=== PATIENT | male | born 1965 | race Caucasian/White ===

== ENCOUNTER 2025-03-28 05:40 | Observation (INO) ==
--- NOTE | 2025-02-25 14:52 | PAT Medication Instructions ---
Medication Instructions Date of Service February 25, 2025 Home Medications Medication Instructions Recorded esomeprazole magnesium 40 mg 40 mg PO QAM GERD #90 caps 10/17/23 capsule,delayed release (Nexium) atorvastatin 40 mg tablet (Lipitor) 40 mg PO QAM #90 tabs 12/16/24 ezetimibe 10 mg tablet (Zetia) 10 mg PO QAM #90 tabs 12/16/24 nystatin 100,000 unit/gram topical 1 applic topical BID #30 grams 01/16/25 cream nystatin 100,000 unit/gram topical 1 applic topical BID #30 grams 01/16/25 powder oxycodone-acetaminophen 10 mg-325 1 tab PO Q6H PRN pain #120 tabs 02/04/25 mg tablet famotidine 20 mg tablet (Pepcid) 20 mg PO HS #90 tabs 02/09/25 finasteride 5 mg tablet 5 mg PO QAM cholecalciferol (vitamin D3) 125 mcg (5,000 unit) tablet (Vitamin D3) 5,000 unit PO QAM esomeprazole magnesium 40 mg capsule,delayed release (Nexium) 40 mg PO QAM potassium citrate 10 mEq (1,080 mg) tablet,extended release (Urocit-K 10) 10 meq PO BID atorvastatin 40 mg tablet (Lipitor) 40 mg PO QAM ezetimibe 10 mg tablet (Zetia) 10 mg PO QAM lidocaine 4 % topical patch 1 patch topical DAILY PRN nystatin 100,000 unit/gram topical cream 1 applic topical BID nystatin 100,000 unit/gram topical powder 1 applic topical BID oxycodone-acetaminophen 10 mg-325 mg tablet 1 tab PO Q6H PRN famotidine 20 mg tablet (Pepcid) 20 mg PO HS ASK your prescriber and surgeon lidocaine 4 % topical patch 1 patch topical DAILY PRN STOP taking 24 hours before surgery nystatin 100,000 unit/gram topical cream 1 applic topical BID nystatin 100,000 unit/gram topical powder 1 applic topical BID DO NOT take the morning of surgery cholecalciferol (vitamin D3) 125 mcg (5,000 unit) tablet (Vitamin D3) 5,000 unit PO QAM potassium citrate 10 mEq (1,080 mg) tablet,extended release (Urocit-K 10) 10 meq PO BID Take morning of surgery With a small sip of water, OTHERWISE NOTHING TO EAT OR DRINK AFTER MIDNIGHT: finasteride 5 mg tablet 5 mg PO QAM esomeprazole magnesium 40 mg capsule,delayed release (Nexium) 40 mg PO QAM atorvastatin 40 mg tablet (Lipitor) 40 mg PO QAM ezetimibe 10 mg tablet (Zetia) 10 mg PO QAM oxycodone-acetaminophen 10 mg-325 mg tablet 1 tab PO Q6H PRN(if needed) Take evening before surgery potassium citrate 10 mEq (1,080 mg) tablet,extended release (Urocit-K 10) 10 meq PO BID oxycodone-acetaminophen 10 mg-325 mg tablet 1 tab PO Q6H PRN(if needed) famotidine 20 mg tablet (Pepcid) 20 mg PO HS Other Notes If you have any questions please call us at [phone] or [phone] or [phone] or [phone]
--- NOTE | 2025-03-06 09:44 | Anesthesiology Consultation ---
Date of Service March 06, 2025 Assessment & Plan (1) Encounter for pre-operative examination: - workload note to be sent to [place] PCP for ultimate pre-operative determination in f/u to 03/03/25 visit. - patient requests not having supplemental oxygen in post-op if possible. He also reports h/o aggressiveness in post-op. OR made aware. Chart Review Chart Review: Pending: Refer to Additional Notes / Consult section and Patient seen in Pre Admission Testing Teaching & Discussion Pre-Anesthesia Teaching/Discussion Notes: Instructed NPO after midnight before surgery, except medications with 15 cc of water. Medication instructions provided according to the PAT guidelines. History Surgery Operation Date: 03/28/25 07:30 Proposed Procedures p C5-C6, C6-C7 Anterior Cervical Discectomy and Fusion with Spinal Cord Monitoring - Kamran Crenshaw MD Height/Weight Height: 5 ft 8 in Weight: 99.1 kg Allergies Allergy/AdvReac Type Severity Reaction Status Date / Time No Known Allergies Allergy Verified 03/03/25 15:58 Medications Home Medications Medication Instructions Recorded Confirmed Last Taken finasteride 5 mg tablet 5 mg PO QAM 05/28/20 03/03/25 01/30/25 cholecalciferol (vitamin D3) 125 5,000 unit PO QAM 02/16/23 03/03/25 01/30/25 mcg (5,000 unit) tablet (Vitamin D3) esomeprazole magnesium 40 mg 40 mg PO QAM GERD #90 caps 10/17/23 03/03/25 01/30/25 capsule,delayed release (Nexium) potassium citrate 10 mEq (1,080 10 meq PO BID 10/17/23 03/03/25 01/30/25 mg) tablet,extended release (Urocit-K 10) atorvastatin 40 mg tablet (Lipitor) 40 mg PO QAM #90 tabs 12/16/24 03/03/25 01/30/25 ezetimibe 10 mg tablet (Zetia) 10 mg PO QAM #90 tabs 12/16/24 03/03/25 01/30/25 lidocaine 4 % topical patch 1 patch topical DAILY PRN Pain 01/16/25 03/03/25 Unknown nystatin 100,000 unit/gram topical 1 applic topical BID #30 grams 01/16/25 03/03/25 Unknown cream nystatin 100,000 unit/gram topical 1 applic topical BID #30 grams 01/16/25 03/03/25 Unknown powder oxycodone-acetaminophen 10 mg-325 1 tab PO Q6H PRN pain #120 tabs 02/04/25 03/03/25 Unknown mg tablet famotidine 20 mg tablet (Pepcid) 20 mg PO HS #90 tabs 02/09/25 03/03/25 Unknown oxycodone 10 mg tablet 10 mg PO Q4H PRN pain #150 tabs 03/03/25 03/03/25 Unknown nitrofurantoin 100 mg PO BID #14 caps 03/04/25 Unknown monohydrate/macrocrystals 100 mg capsule (Macrobid) Past Medical History Medical History BPH (benign prostatic hyperplasia) Cervical radiculopathy at C6 f/u geronimo love Cervical radiculopathy at C7 f/u geronimo love Chronic lumbar pain Degenerative lumbar spinal stenosis hx Difficulty swallowing dysphagia w/u in 2019 included EGD and found to have Barretts esophagus and esophagitis; med and lifestyle changes recommended--"still ongoing problem depending on what he's eating" denies change or worsening Fatty liver GERD (gastroesophageal reflux disease) controlled, stable per pt Hearing deficit History of anemia no current issues History of Mcdaniel's esophagus History of Graves' disease diagnosed 2008--no meds currently, no surgery History of hyperthyroidism History of kidney stones History of pericarditis (~2020) Hx MRSA infection (~2018) 2019, dx s bert in groin/wound, tx w/abx. Hx of chronic kidney disease Hx of gout Hyperlipidemia Migraine hx Osteoporosis Other cervical disc degeneration, high cervical region f/u geronimo love Pericardial effusion (~2020) hx-2020, no current issues; d/c by [facility] cardio in 2022 with prn f/u Thyroid nodule Vitamin D deficiency Patient denies h/o stroke, seizures, heart attack, heart failure, DM, HTN, blood clots/DVTs or blood transfusions. Exercise / Class Metabolic Activity II 4-5 Yardwork/Stairs/Walk up hill (denies chest discomfort or shortness of breath with one flight of stairs) Past Family History Family History Father Diabetes Hypertension Stroke Aunt Cancer Grandfather Cancer Other No family history of adverse response to anesthesia Past Surgical History Surgical History H/O arthroscopy of knee LEFT UOC H/O shoulder surgery RIGHT X2, Left x 3 History of back surgery X3 lumbar disc surgery [place] x2 [place] History of carpal tunnel surgery of left wrist w/cubital tunnel release of left elbow History of carpal tunnel surgery of right wrist w/cubital tunnel release History of esophagogastroduodenoscopy (EGD) 01/2025 History of lumbar spinal fusion L4-L5 d/f hdw, unsure of date "not recently" History of wisdom tooth extraction Past Anesthesia History No Family Hx of Anesthesia Complications and Other (patient states can be verbally aggressive post-op) History of PONV No Hx of PONV and No Hx of Motion Sickness Social History Smoking Status: Former smoker tobacco type: smokeless tobacco Do You Dip or Chew Tobacco: Yes (advised) Smoking End Date: years ago Hx Alcohol Use: No Hx Substance Use: No (pt denies hx of use) substance use type: does not use Last Used Substance Other:: pt denies Review of Systems Snoring, denies witnessed apneas. Patient denies chest pain, shortness of breath, dyspnea on exertion, fever, chills, cough, wheezing, or palpitations. Physical Exam Vital Signs Vitals BP 148/78 P 98 TEMP 98.3 SP02 98% on RA RESP 17 Physical Patient resting comfortably in chair in no acute distress, alert and oriented, responding appropriately throughout visit Limited cervical extension range of motion without pain TMD 3.5 finger breadths Mallampati Score 3 Dentition: broken tooth right back, front caps/crowns and upper bridge; denies loose teeth, or implants Lungs: normal respiratory effort. Good air movement, clear throughout to auscultation, no adventitious breath sounds Cardiac: regular rate and rhythm, no murmurs noted Carotid arteries: negative bruit bilat Lab Results Anesthesia Preop Results Results Anesthesia Widget: WBC 9.09 K/ul (4.8-10.8) 03/03/25 Hgb 15.1 g/dl (14.0-18.0) 03/03/25 Hct 45.2 % (42.0-52.0) 03/03/25 Plt 243 K/uL (130-400) 03/03/25 Na 138 mmol/L (136-145) 03/03/25 K 4.2 mmol/L (3.5-5.1) 03/03/25 Cl 103 mmol/L (98-107) 03/03/25 CO2 25 mmol/L (21-32) 03/03/25 BUN 8 mg/dl (6-23) 03/03/25 Creat 1.06 mg/dl (0.6-1.4) 03/03/25 Glucose Level 92 mg/dl (70-99(Fasting)) 03/03/25 PT 10.6 Seconds (9.0-12.0) 03/03/25 PTT 26 Seconds (21-31) 03/03/25 INR 1.0 (0.9-1.1) 03/03/25 HA1c 5.7 % (4.5-5.6) H 03/06/25 Urine Color Yellow 03/03/25 Urine Appearance Cloudy (Clear) A 03/03/25 Urine pH 5.5 (4.5-7.5) 03/03/25 Urine Specific [place] 1.014 (1.000-1.030) 03/03/25 Urine Protein Negative (Negative) 03/03/25 Urine Glucose (UA) Negative (Negative) 03/03/25 Urine Ketones Trace (Negative) H 03/03/25 Urine Blood Trace (Negative) H 03/03/25 Urine Nitrite Positive (Negative) A 03/03/25 Urine Bilirubin Negative (Negative) 03/03/25 Urine Urobilinogen Negative (Negative) 03/03/25 Urine Leukocyte Esterase 3+ (Negative) H 03/03/25 Urine WBC (Auto) >50 /hpf (0-5) H 03/03/25 Urine RBC (Auto) 0-2 /hpf (0-2) 03/03/25 Urine Hyaline Casts (Auto) 0-2 /lpf (0-2) 03/03/25 Urine Epithelial Cells (Auto) 0-2 /hpf (0-2) 03/03/25 Urine Bacteria (Auto) 4+ (None Seen) H 03/03/25 Blood Type O Positive 03/06/25 Antibody Screen NEGATIVE 03/06/25 Testing Electrocardiogram Date: 03/03/25 Sinus rhythm, rate 85 bpm Chest X-Ray Date: 03/06/25 No prior studies are available for comparison at the time of dictation. The heart is mildly enlarged. The pulmonary vasculature is noncongested. Nonspecific interstitial thickening is likely chronic. Scarring/atelectasis is noted at the lung bases. No airspace consolidation or large pleural effusion is identified. There is no pneumothorax. The skeletal structures are osteopenic. There are mild thoracic compression deformities. Degenerative change and scoliosis is noted in the thoracic spine. IMPRESSION: Cardiomegaly with no acute cardiopulmonary abnormality identified. Echocardiogram Date: 02/25/21 LVEF 54% Grade I diastolic dysfunction Non-dilated cardiac chambers Mild mitral regurgitation Borderline enlarged aortic root and proximal ascending aorta Increased tissue density in the region of the pericardium suggesting pericardial fat. No pericardial effusion is noted Stress Test Date: 01/26/21 Negative for ischemia Decreased counts noted in the inferior wall (suggested of attenuation artifact disease counts improved with stress and there is no wall motion abnormalities) EF 57% Cervical Spine Date: 06/17/24 Degenerative changes of the midcervical spine including multilevel foraminal stenosis from uncovertebral hypertrophy and facet osteoarthropathy as described above. There is no high-grade thecal sac stenosis or cord impingement.
[2025-03-28] MEDS: ACETAMINOPHEN 500 MG TAB PO SCH (06:21)
[2025-03-28] MEDS: LR 60ML/HR IV SCH (06:22)
[2025-03-28] MEDS: LR 15ML/HR IV SCH (06:22)
[2025-03-28] MEDS ORDERED: DEXAMETHASONE SOD INJ 4 MG/ML VIAL ONE (07:02)
[2025-03-28] MEDS ORDERED: PROPOFOL IV EMULSION 10 MG/ML 100 ML VIAL IV ONE ×2 (07:02→10:05)
[2025-03-28] MEDS ORDERED: SUCCINYLCHOLINE CHLORIDE 20 MG/ML 10 ML VIAL IV ONE (07:02)
[2025-03-28] MEDS ORDERED: PROPOFOL IV EMULSION 10 MG/ML 20 ML VIAL IV ONE (07:03)
[2025-03-28] MEDS ORDERED: ROCURONIUM BROMIDE 10 MG/ML 5 ML VIAL IV ONE (07:03)
[2025-03-28] MEDS ORDERED: LIDOCAINE 2% 2 ML VIAL/AMP(20MG/ML) INFIL ONE (07:03)
[2025-03-28] MEDS ORDERED: ONDANSETRON INJ 2 MG/ML 2 ML VIAL ONE (07:03)
[2025-03-28] MEDS ORDERED: MIDAZOLAM HCL 1 MG/ML 2ML VIAL ONE (07:03)
[2025-03-28] MEDS ORDERED: REMIFENTANIL HCL 1 MG VIAL IV ONE ×2 (07:04→09:49)
[2025-03-28] MEDS ORDERED: PHENYLEPHRINE HCL 10 MG/ML VIAL ONE (07:08)
--- NOTE | 2025-03-28 07:27 | History & Physical Report ---
Date of Service March 28, 2025 Assessment & Plan (1) Other cervical disc degeneration at C6-C7 level: (2) Other cervical disc degeneration at C5-C6 level: (3) Cervical arthritis: (4) Foraminal stenosis of cervical region: (5) Cervical radiculopathy at C7: (6) Cervical radiculopathy at C6: I discussed again with the patient today that he has multiple discs throughout his neck and have signs of degeneration. He does have a nerve conduction study findings of C6 and C7 radiculopathy on his left which could correlate with his symptoms. We discussed again that he has an atypical presentation of radiculopathy and the most severe pain of his shoulder region may not be completely resolved even with surgery. I discussed multiple options with him today such as only addressing the C5-6 and C6-7 levels as there is certainly stenosis at these levels and nerve conduction study findings of radiculopathy at these levels. There is no sign of a C4 radiculopathy so my recommendation would be to address only the C5-6 and C6-7 levels if any surgery were to be planned. We did discuss the possibility of a hybrid construct with anterior cervical discectomy and fusion at C5-6 and C6-7 with possible disc arthroplasty at C3-4 at a later date if he continued to have radicular symptoms. Risks and benefits documented in prior clinic notes. History of Present Illness Chief Complaint: Left Shoulder Pain Primary Care Provider: Osiel Santos DO Patient is a 59-year-old gentleman here for follow-up status post cervical epidural injection. He had a C7-T1 translaminar epidural injection which provided approximately 6 weeks of good relief of symptoms. Fortunately pain radiating into the left upper extremity is starting to return, main area of concentration is the superior aspect of his shoulder. He does report some radiation of pain and numbness into the C6 and C7 dermatomes down to the left hand. He has had the symptoms for quite some time, he has undergone shoulder surgery. He was also evaluated by one of our other spine surgeons and sent for nerve conduction study which did show chronic C6 and C7 radiculopathy. No changes since clinic Allergies Allergy/AdvReac Type Severity Reaction Status Date / Time No Known Allergies Allergy Verified 03/28/25 05:54 Home Medications Medication Instructions Recorded Confirmed Type finasteride 5 mg tablet (Proscar) 5 mg PO QAM 05/28/20 03/28/25 History cholecalciferol (vitamin D3) 125 5,000 unit PO QAM 02/16/23 03/28/25 History mcg (5,000 unit) tablet (Vitamin D3) esomeprazole magnesium 40 mg 40 mg PO QAM GERD #90 caps 10/17/23 03/28/25 Rx capsule,delayed release (Nexium) potassium citrate 10 mEq (1,080 10 meq PO BID 10/17/23 03/28/25 History mg) tablet,extended release (Urocit-K 10) atorvastatin 40 mg tablet (Lipitor) 40 mg PO QAM #90 tabs 12/16/24 03/28/25 Rx ezetimibe 10 mg tablet (Zetia) 10 mg PO QAM #90 tabs 12/16/24 03/28/25 Rx lidocaine 4 % topical patch 1 patch topical DAILY PRN Pain 01/16/25 03/28/25 History nystatin 100,000 unit/gram topical 1 applic topical BID #30 grams 01/16/25 03/28/25 Rx cream nystatin 100,000 unit/gram topical 1 applic topical BID #30 grams 01/16/25 03/28/25 Rx powder oxycodone-acetaminophen 10 mg-325 1 tab PO Q6H PRN pain #120 tabs 02/04/25 03/28/25 Rx mg tablet oxycodone 10 mg tablet 10 mg PO Q4H PRN pain #150 tabs 03/03/25 03/28/25 Rx famotidine 20 mg tablet (Pepcid) 20 mg PO DAILY 03/28/25 03/28/25 History Past Med/Surg History Problem List Lumbar radiculopathy Tinea pedis Foraminal stenosis of cervical region Cervical spondylosis Other cervical disc degeneration at C6-C7 level Other cervical disc degeneration at C5-C6 level Cervical arthritis Gout Right shoulder pain Elevated alkaline phosphatase level Nevus Cervical radiculopathy at C7 Cervical radiculopathy at C6 Other cervical disc degeneration, high cervical region Cervical pain Numbness of left hand H/O renal calculi Elevated sed rate Right knee pain CKD (chronic kidney disease) Anemia Barretts esophagus Encounter for pre-operative examination 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; had normal EGD 05/2020 Dysphagia Arthritis Thyroid nodule Decreased libido Unexplained night sweats Thyroid enlargement Left shoulder pain AC joint arthropathy Vitamin D deficiency (Chronic) Osteoporosis with fracture (Chronic) Osteogenesis imperfecta (Chronic) Hyperthyroidism (Chronic) Hyperlipidemia (Chronic) Degenerative lumbar spinal stenosis Chronic lumbar pain (Chronic) on 60MME/day PRN pain medication Medical History BPH (benign prostatic hyperplasia) Cervical radiculopathy at C6 f/u geronimo love Cervical radiculopathy at C7 f/u geronimo love Chronic lumbar pain Degenerative lumbar spinal stenosis hx Difficulty swallowing dysphagia w/u in 2019 included EGD and found to have Barretts esophagus and esophagitis; med and lifestyle changes recommended--"still ongoing problem depending on what he's eating" denies change or worsening Fatty liver GERD (gastroesophageal reflux disease) controlled, stable per pt Hearing deficit History of anemia no current issues History of Mcdaniel's esophagus History of Graves' disease diagnosed 2008--no meds currently, no surgery History of hyperthyroidism History of kidney stones History of pericarditis (~2020) Hx MRSA infection (~2018) 2019, dx s [place] in groin/wound, tx w/abx. Hx of chronic kidney disease Hx of gout Hyperlipidemia Migraine hx Osteoporosis Other cervical disc degeneration, high cervical region f/u geronimo love Pericardial effusion (~2020) hx-2020, no current issues; d/c by [facility] in 2022 with prn f/u Thyroid nodule Vitamin D deficiency Surgical History H/O arthroscopy of knee LEFT UOC H/O shoulder surgery RIGHT X2, Left x 3 History of back surgery X3 lumbar disc surgery x2 [place] History of carpal tunnel surgery of left wrist w/cubital tunnel release of left elbow History of carpal tunnel surgery of right wrist w/cubital tunnel release History of esophagogastroduodenoscopy (EGD) 01/2025 History of lumbar spinal fusion L4-L5 d/f hdw, unsure of date "not recently" History of wisdom tooth extraction Family History Father Diabetes Hypertension Stroke Aunt Cancer Grandfather Cancer Other No family history of adverse response to anesthesia Social History Smoking Status: Former smoker Tobacco Type: Smokeless Tobacco (Dip or Chew) Age Started Using Tobacco: 13; Age Quit Using Tobacco: 23; packs per day: 0.5; Smoking End Date: years ago; Second Hand Exposure: No; Do You Dip or Chew Tobacco: Yes (advised); Tobacco Cessation Education Requested by Patient: No Hx Alcohol Use: No Hx Substance Use: No (pt denies hx of use) Preferred Language: Yakut Communication Ability: Effective 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 Physical Exam Physical exam: Constitutional: Well developed, appears stated age Psych: patient is coherent and answers questions appropriately, normal affect Eye: Normal gaze, no redness to sclera, pupils round and equal Pulm: Normal respiratory effort, no wheezing Cardiovascular: no significant peripheral edema, 2+ radial pulses Skin shows no rashes, lesions 5/5 muscle strength with testing of deltoids, wrist extensors, triceps, finger flexion, and hand intrinsics Sensation intact to light touch in the C5-T1 dermatomes bilaterally 2+ reflexes at biceps, triceps, and brachioradialis bilaterally Imaging: MRI of the cervical spine available for review and discussed again with the patient today. He does have moderate disc degeneration at C3-4 with disc bulge, severe left foraminal stenosis at C3-4. C5-6 C6-7 both show a moderate degree of disc degeneration with severe left foraminal stenosis at C5-6 and moderate at C6-7 with compression of the exiting nerve roots. Results & Data Results & Data Laboratory Results . Diagnostic Findings . PG Care Time/CCT Total # of Minutes Spent Total Time Spent with Patient: Total time spent is greater than 50% in coordination of care (as documented) at patient's floor/unit and/or counseling patient: Coding Level of Care Code None Diagnoses Other cervical disc degeneration at C6-C7 level M50.323 Other cervical disc degeneration at C5-C6 level M50.322 Cervical arthritis M47.812 Foraminal stenosis of cervical region M48.02 Cervical radiculopathy at C7 M54.12 Cervical radiculopathy at C6 M54.12
--- NOTE | 2025-03-28 09:09 | Urology Consultation ---
Date of Consultation March 28, 2025 Assessment & Plan (1) BPH (benign prostatic hyperplasia): Patient presenting to OR for elective C5-C6, C6-C7 anterior cervical discectomy and fusion with spinal cord monitoring with Dr. Crenshaw. Urology consulted preoperatively for difficult Ac placement A 16 Bur[place]ian coude catheter was placed successfully Ac draining appropriately at completion Continue Ac management per primary team will sign off, please contact our service with any additional questions or concerns History of Present Illness Reason for Consultation: Difficult Ac catheter Attending Physician: Kamran Crenshaw MD History of Present Illness This is a 60-year-old male who presented for elective C5-C6, C6-C7 anterior cervical discectomy and fusion with spinal cord monitoring with Dr. Crenshaw. Nursing was unable to place a Ac catheter preoperatively. Urology is consulted for difficult Ac placement. Patient was already under anesthesia upon my arrival to OR. Ac catheter was exchanged in the following fashion: On exam, patient has a hypospadias. Patient was prepped and draped in sterile fashion. A well-lubricated 16 Burundian catheter was inserted per urethra. Initially met slight resistance within the penile urethra, which was bypassed. Met resistance again at the presumed level of the prostate. Switched catheter to 16 [place]ian coude catheter. Coude catheter bypassed the prostate and flash of urine was observed. The balloon was then inflated with 10 mL of saline. There was return of clear yellow urine through the catheter. The catheter was attached to gravity drainage. Allergies Allergy/AdvReac Type Severity Reaction Status Date / Time No Known Allergies Allergy Verified 03/28/25 05:54 Home Medications Medication Instructions Recorded Confirmed Type finasteride 5 mg tablet (Proscar) 5 mg PO QAM 05/28/20 03/28/25 History cholecalciferol (vitamin D3) 125 5,000 unit PO QAM 02/16/23 03/28/25 History mcg (5,000 unit) tablet (Vitamin D3) esomeprazole magnesium 40 mg 40 mg PO QAM GERD #90 caps 10/17/23 03/28/25 Rx capsule,delayed release (Nexium) potassium citrate 10 mEq (1,080 10 meq PO BID 10/17/23 03/28/25 History mg) tablet,extended release (Urocit-K 10) atorvastatin 40 mg tablet (Lipitor) 40 mg PO QAM #90 tabs 12/16/24 03/28/25 Rx ezetimibe 10 mg tablet (Zetia) 10 mg PO QAM #90 tabs 12/16/24 03/28/25 Rx lidocaine 4 % topical patch 1 patch topical DAILY PRN Pain 01/16/25 03/28/25 History nystatin 100,000 unit/gram topical 1 applic topical BID #30 grams 01/16/25 03/28/25 Rx cream nystatin 100,000 unit/gram topical 1 applic topical BID #30 grams 01/16/25 03/28/25 Rx powder oxycodone-acetaminophen 10 mg-325 1 tab PO Q6H PRN pain #120 tabs 02/04/25 03/28/25 Rx mg tablet oxycodone 10 mg tablet 10 mg PO Q4H PRN pain #150 tabs 03/03/25 03/28/25 Rx famotidine 20 mg tablet (Pepcid) 20 mg PO DAILY 03/28/25 03/28/25 History Patient History Medical History History of pericarditis (~2020) Vitamin D deficiency Thyroid nodule Pericardial effusion (~2020) hx-2020, no current issues; d/c by [facility] cardio in 2022 with prn f/u Other cervical disc degeneration, high cervical region f/u geronimo love History of hyperthyroidism GERD (gastroesophageal reflux disease) controlled, stable per pt Hyperlipidemia Hx of gout Degenerative lumbar spinal stenosis hx Hx of chronic kidney disease Chronic lumbar pain Cervical radiculopathy at C7 f/u geronimo love Cervical radiculopathy at C6 f/u geronimo love History of anemia no current issues Hx MRSA infection (~2018) 2019, dx s lewistowcharlette in groin/wound, tx w/abx. History of Mcdaniel's esophagus BPH (benign prostatic hyperplasia) Fatty liver Difficulty swallowing dysphagia w/u in 2019 included EGD and found to have Barretts esophagus and esophagitis; med and lifestyle changes recommended--"still ongoing problem depending on what he's eating" denies change or worsening History of Graves' disease diagnosed 2008--no meds currently, no surgery Hearing deficit Migraine hx Osteoporosis History of kidney stones Surgical History History of carpal tunnel surgery of right wrist w/cubital tunnel release History of carpal tunnel surgery of left wrist w/cubital tunnel release of left elbow History of esophagogastroduodenoscopy (EGD) 01/2025 History of lumbar spinal fusion L4-L5 d/f hdw, unsure of date "not recently" History of wisdom tooth extraction History of back surgery X3 lumbar disc surgery x2 [place] H/O arthroscopy of knee LEFT UOC H/O shoulder surgery RIGHT X2, Left x 3 Family History Father Diabetes Hypertension Stroke Aunt Cancer Grandfather Cancer Other No family history of adverse response to anesthesia Social History Smoking Status: Former smoker Tobacco Type: Smokeless Tobacco (Dip or Chew) Age Started Using Tobacco: 13; Age Quit Using Tobacco: 23; packs per day: 0.5; Smoking End Date: years ago; Second Hand Exposure: No; Do You Dip or Chew Tobacco: Yes (advised); Tobacco Cessation Education Requested by Patient: No Hx Alcohol Use: No Hx Substance Use: No (pt denies hx of use) Preferred Language: Maori Communication Ability: Effective Cable Inspector Required: No Beliefs That Will Affect Care: None marital status: Single Current Living Situation: Parent and Significant Other current occupational status: disabled Other Information That Helps Us Care for You: No Feels Safe at Home: Yes Safety Concerns: Feels Safe At This Time Childhood Exposure to Second-Hand Smoke: Yes caffeine: Yes (soda) Dental Care, Regularly: No Physical Activity Frequency: Does not Exercise Seatbelt Use: sometimes Sunscreen Use: No Assistive Devices: Glasses Review of Systems Review of Systems: Unobtainable due to endotracheal tube Physical Exam Genitourinary: Uncircumcised penis. Patient with a subcoronal hypospadias. Ac catheter placement as per HPI. Results & Data Vital Signs (Past 12 Hours) Vital Signs Temp Pulse Resp BP Pulse Ox O2 Del Method 03/28/25 06:11 36.9 C 97 H 22 125/94 95 Room Air PG Care Time/CCT Total # of Minutes Spent Total Time Spent with Patient: Total time spent is greater than 50% in coordination of care (as documented) at patient's floor/unit and/or counseling patient: Coding Level of Care Code 04179 IN/OBS CONSULT LVL 3,45M Diagnoses BPH (benign prostatic hyperplasia) N40.0 Comment Please code for difficult Ac placement/procedure
[2025-03-28] MEDS: VANCOMYCIN HCL 1000MG/20ML VIAL ONE (09:44)
[2025-03-28] MEDS ORDERED: ceFAZolin 330 MG/ML 1 GM VIAL ONE (11:56)
[2025-03-28] MEDS: FLOSEAL HEMOSTATIC MATRIX 10ML TOP ONE (12:04)
[2025-03-28] MEDS ORDERED: HYDROmorphone INJ 2 MG/ML SYR/VIAL ONE (12:07)
[2025-03-28] MEDS ORDERED: ONDANSETRON INJ 2 MG/ML 2 ML VIAL IV PRN ×2 (12:14→14:57)
[2025-03-28] MEDS ORDERED: HYDROmorphone INJ 2 MG/ML SYR/VIAL IV PRN (12:14)
[2025-03-28] MEDS ORDERED: ATROPINE SULFATE 0.1 MG/ML 10ML SYR IV PRN (12:14)
[2025-03-28] MEDS ORDERED: DEXAMETHASONE SOD INJ 4 MG/ML VIAL IV PRN (12:14)
--- NOTE | 2025-03-28 12:21 | Fluoroscopy Report ---
FL cervical 2-3V CLINICAL HISTORY: C5-C7 ACDF COMPARISON STUDY: None FLUOROSCOPY TIME: 65 seconds FLUOROSCOPY IMAGES: 3 EXPOSURE DOSE: 18 mGy FINDINGS: Fluoroscopy was provided for lower cervical metallic fusion. IMPRESSION: Intraoperative fluoroscopy. ACT 112: Negative or not required by law. Electronically signed by: Alex Lr M.D. 03/28/2025 12:19 PM
--- NOTE | 2025-03-28 12:24 | Operative Report ---
PG Post Operative Report Pre & Post Diagnosis Operation Date: 03/28/25 07:30 Pre-Op Diagnosis: (1) Other cervical disc degeneration at C6-C7 level. (2) Other cervical disc degeneration at C5-C6 level. (3) Cervical arthritis. (4) Foraminal stenosis of cervical region. (5) Cervical radiculopathy at C7. (6) Cervical radiculopathy at C6. Post-Op Diagnosis: (1) Other cervical disc degeneration at C6-C7 level. (2) Other cervical disc degeneration at C5-C6 level. (3) Cervical arthritis. (4) Foraminal stenosis of cervical region. (5) Cervical radiculopathy at C7. (6) Cervical radiculopathy at C6. I identified the patient and participated in the time-out.: Yes Procedure Operation Date: 03/28/25 07:30 1. C6-7 anterior cervical decompression and fusion (72448). 2. C6-7 interbody spacer placement with arthrodesis (02328). 3. C5-6 anterior cervical decompression and fusion (50127). 4. C5-6 interbody spacer placement with arthrodesis (08162). 5. C5, C6 and C7 anterior instrumentation (separate from interbody spacer) (91941). 6. Allograft for Spine Fusion Instrumentation: Camber Spira Interbody, Camber Plate Surgeon Kamran Crenshaw MD [address] Galarza PA-C Estimated Blood Loss 25 Findings Consistent with Post-Op Diagnosis Specimens None Drains Alonzo Anesthesia Type General Complications none Disposition Disposition: Recovery Room Indications The patient has suffered from severe and unrelenting symptoms despite exhaustive conservative management. After discussing the benefits and risks of continued conservative management versus operative intervention, the patient elected to proceed with surgery. Description of Procedure Informed consent was obtained prior to the procedure. In the preoperative holding area, the patient's anterior neck was marked with a marking pen. The patient was taken to the operating room and anesthesia was initiated. The patient was placed supine on a regular operating room table. The neck was placed in a neutral position. All prominences were carefully padded. Due to difficulty with Ac catheter placement, urology was consulted and placed Ac. The anterior neck was prepped and draped in typical sterile fashion. Antibiotics were administered. A timeout was performed. Neuromonitoring was utilized, including somatosensory evoked potentials, running electromyography and motor evoked potentials. These remained stable throughout the case. A #10 blade was used to incise the skin. Bovie electrocautery was used to maintain meticulous hemostasis as dissection was completed through the subcutaneous and platysma. The interval between the sternocleidomastoid and the strap musculature was identified and bluntly dissected. The carotid sheath was palpated, retracted laterally and protected. The anterior cervical spine was identified and exposed. A spinal needle was placed into the disc space to confirm the appropriate levels using x-ray. The longus colli were carefully elevated off the anterior spine laterally. Care was taken to not dissect too laterally so as to protect the sympathetic chains. Anterior osteophytes were removed. The caspar pins were placed and a small amount of distraction was applied across the C6-7 disc space. A total diskectomy along with bilateral foraminotomies were completed. The posterior longitudinal ligament was taken down. The central thecal sac and the bilateral C7 exiting nerve roots were confirmed to be completely decompressed. The endplates were prepared. Allograft was packed into an interbody spacer to encourage fusion. The interbody spacer was implanted.. [place] pins were placed and a small amount of distraction was applied across the C5-6 disc space. A total diskectomy along with bilateral foraminotomies were completed. The posterior longitudinal ligament was taken down. The central thecal sac and the bilateral C6 exiting nerve roots were confirmed to be completely decompressed. The endplates were prepared. Allograft was packed into an interbody spacer to encourage fusion. The interbody spacer was implanted. An anterior cervical plate was selected and implanted. Screws were placed into the bodies of C5, C6, C7. The screws were locked into the plate. X-rays were taken and confirmed appropriate spacer and hardware position. The wound was thoroughly irrigated. Meticulous hemostasis was achieved. A single drain was placed deep. The platysma and subcutaneous were closed using absorbable suture. The cutaneous was closed using a monofilament, absorbable suture. A sterile dressing was placed. At the end of the case, all instrument and sponge counts were correct. The patient was awakened from anesthesia without complication and taken to the PACU in stable condition. I attest to the content of the Intraoperative Record and any orders documented therein. Any exceptions are noted below.
--- NOTE | 2025-03-28 13:44 | Anesthesiology Progress Note ---
Date of Service March 28, 2025 Anesthesia Post Procedure Vital Signs Vital Signs: Temp Pulse Resp BP Pulse Ox O2 Del Method O2 Flow Rate 03/28/25 13:40 92 H 14 93 Room Air 03/28/25 13:30 90 14 128/98 94 Room Air 03/28/25 13:20 88 12 123/92 94 Room Air 03/28/25 13:10 93 H 16 110/86 95 Room Air 03/28/25 13:00 87 15 130/87 93 Room Air 03/28/25 12:50 89 15 136/100 94 Room Air 03/28/25 12:40 97 H 12 127/92 97 Oxymask 4 03/28/25 12:33 36.0 C L 93 H 12 123/94 95 Oxymask 4 03/28/25 06:11 36.9 C 97 H 22 125/94 95 Room Air Transfer of Care Handoff Completed per policy Notes Mental Status: alert / awake / arousable and participated in evaluation Patient Amnestic to Procedure: Yes Nausea / Vomiting: adequately controlled Pain: adequately controlled Airway Patency, RR, SpO2: stable & adequate BP & HR: stable & adequate Hydration State: stable & adequate Anesthetic Complications: no major complications apparent and Pt Satisfied with anesthetic care
[2025-03-28] MEDS ORDERED: ONDANSETRON 4 MG OD TAB PO PRN (14:57)
[2025-03-28] MEDS ORDERED: DO NOT ADMINISTER PNEUMOCOCCAL VACCINE PRN (14:57)
[2025-03-28] MEDS ORDERED: RACEPINEPHRINE 2.25% NEBU SOLN 0.5 ML VIAL INH PRN (14:57)
[2025-03-28] MEDS ORDERED: METOCLOPRAMIDE HCL INJ 5 MG/ML 2 ML VIAL IV PRN (14:57)
[2025-03-28] MEDS ORDERED: ACETAMINOPHEN 1,000 MG/100 ML VIAL IV PRN (14:57)
[2025-03-28] MEDS ORDERED: DO NOT ADMINISTER FLU VACCINE PRN (14:57)
[2025-03-28] MEDS ORDERED: diphenhydrAMINE Capsule 25 MG CAP PO PRN (14:57)
[2025-03-28] MEDS ORDERED: ALUMINUM/MAGNESIUM SUSP 30 ML UDC PO PRN (14:57)
[2025-03-28] MEDS ORDERED: SOD PHOSPHATE/SOD BIPHOSPHATE ENEMA 132 ML BTL PR PRN (14:57)
[2025-03-28] MEDS ORDERED: MAGNESIUM HYDROXIDE SUSP 30 ML UDC PO PRN (14:57)
[2025-03-28] MEDS ORDERED: LORazepam 0.5 MG TAB PO PRN (14:57)
[2025-03-28] MEDS ORDERED: NALOXONE HCL 0.4 MG/1 ML VIAL/CARP IV PRN (14:57)
[2025-03-28] MEDS ORDERED: HYDROmorphone INJ 1 MG/ML SYRINGE IV PRN (14:57)
[2025-03-28] MEDS ORDERED: dexAMETHasone 8 MG in SYRINGE 0 ML IV PRN (14:57)
[2025-03-28] MEDS ORDERED: PROMETHAZINE 12.5 MG/50.5 ML BAG IV PRN (14:57)
[2025-03-28] MEDS ORDERED: ACETAMINOPHEN 500 MG TAB PO PRN (14:57)
--- NOTE | 2025-03-28 15:16 | Hospitalist Consultation ---
Date of Consultation March 28, 2025 Assessment & Plan Plan Dmitri is a 60M with a PMHx of CKD, anemia, oesteoporosis, HLD, Hypothryoid and cervical disc degeneration who presents to the hospital for elective surgery with Dr. Crenshaw. Hospitalist consulted for medical management post op. #Cervical Disc Degeneration S/p C5-C6, C6-C7 anterior cervical discectomy and fusion with Dr. Crenshaw 03/28 Pain control / DVT proh / abx/ dispo per primary team EBL 25 Monitor for AM labs. #HLD - continue statin and zetia # GERD - continue PPI and pepcid #BPH - continue finasteride Thank you for allowing us to participate in the care of this patient, please reach out with any questions or concerns. Medicine will continue to follow for AM labs. History of Present Illness Reason for Consultation: medical management Requesting Physician: Dr. Crenshaw Attending Physician: Kamran Crenshaw MD History of Present Illness Dmitri is a 60M with a PMHx of CKD, anemia, oesteoporosis, HLD, Hypothryoid and cervical disc degeneration who presents to the hospital for elective surgery with Dr. Crenshaw. Allergies Allergy/AdvReac Type Severity Reaction Status Date / Time No Known Allergies Allergy Verified 03/28/25 05:54 Home Medications Medication Instructions Recorded Confirmed Type finasteride 5 mg tablet (Proscar) 5 mg PO QAM 05/28/20 03/28/25 History cholecalciferol (vitamin D3) 125 5,000 unit PO QAM 02/16/23 03/28/25 History mcg (5,000 unit) tablet (Vitamin D3) esomeprazole magnesium 40 mg 40 mg PO QAM GERD #90 caps 10/17/23 03/28/25 Rx capsule,delayed release (Nexium) potassium citrate 10 mEq (1,080 10 meq PO BID 10/17/23 03/28/25 History mg) tablet,extended release (Urocit-K 10) atorvastatin 40 mg tablet (Lipitor) 40 mg PO QAM #90 tabs 12/16/24 03/28/25 Rx ezetimibe 10 mg tablet (Zetia) 10 mg PO QAM #90 tabs 12/16/24 03/28/25 Rx lidocaine 4 % topical patch 1 patch topical DAILY PRN Pain 01/16/25 03/28/25 History nystatin 100,000 unit/gram topical 1 applic topical BID #30 grams 01/16/25 03/28/25 Rx cream nystatin 100,000 unit/gram topical 1 applic topical BID #30 grams 01/16/25 03/28/25 Rx powder oxycodone-acetaminophen 10 mg-325 1 tab PO Q6H PRN pain #120 tabs 02/04/25 03/28/25 Rx mg tablet oxycodone 10 mg tablet 10 mg PO Q4H PRN pain #150 tabs 03/03/25 03/28/25 Rx famotidine 20 mg tablet (Pepcid) 20 mg PO DAILY 03/28/25 03/28/25 History Patient History Medical History History of pericarditis (~2020) Vitamin D deficiency Thyroid nodule Pericardial effusion (~2020) hx-2020, no current issues; d/c by [facility] cardio in 2022 with prn f/u Other cervical disc degeneration, high cervical region f/u geronimo love History of hyperthyroidism GERD (gastroesophageal reflux disease) controlled, stable per pt Hyperlipidemia Hx of gout Degenerative lumbar spinal stenosis hx Hx of chronic kidney disease Chronic lumbar pain Cervical radiculopathy at C7 f/u geronimo love Cervical radiculopathy at C6 f/u geronimo love History of anemia no current issues Hx MRSA infection (~2018) 2019, dx s lewistowcharlette in groin/wound, tx w/abx. History of Mcdaniel's esophagus BPH (benign prostatic hyperplasia) Fatty liver Difficulty swallowing dysphagia w/u in 2019 included EGD and found to have Barretts esophagus and esophagitis; med and lifestyle changes recommended--"still ongoing problem depending on what he's eating" denies change or worsening History of Graves' disease diagnosed 2008--no meds currently, no surgery Hearing deficit Migraine hx Osteoporosis History of kidney stones Surgical History History of carpal tunnel surgery of right wrist w/cubital tunnel release History of carpal tunnel surgery of left wrist w/cubital tunnel release of left elbow History of esophagogastroduodenoscopy (EGD) 01/2025 History of lumbar spinal fusion L4-L5 d/f hdw, unsure of date "not recently" History of wisdom tooth extraction History of back surgery X3 lumbar disc surgery [place] x2 [place] H/O arthroscopy of knee LEFT UOC H/O shoulder surgery RIGHT X2, Left x 3 Family History Father Diabetes Hypertension Stroke Aunt Cancer Grandfather Cancer Other No family history of adverse response to anesthesia Social History Smoking Status: Former smoker Tobacco Type: Smokeless Tobacco (Dip or Chew) Age Started Using Tobacco: 13; Age Quit Using Tobacco: 23; packs per day: 0.5; Smoking End Date: years ago; Second Hand Exposure: No; Do You Dip or Chew Tobacco: Yes (advised); Tobacco Cessation Education Requested by Patient: No Hx Alcohol Use: No Hx Substance Use: No (pt denies hx of use) Preferred Language: Belarusian Communication Ability: Effective Game Artist Required: No Beliefs That Will Affect Care: None marital status: Single Current Living Situation: Parent and Significant Other current occupational status: disabled Other Information That Helps Us Care for You: No Feels Safe at Home: Yes Safety Concerns: Feels Safe At This Time Childhood Exposure to Second-Hand Smoke: Yes caffeine: Yes (soda) Dental Care, Regularly: No Physical Activity Frequency: Does not Exercise Seatbelt Use: sometimes Sunscreen Use: No Assistive Devices: Glasses Results & Data Results & Data Vital Signs (Past 12 Hours) Vital Signs Temp Pulse Pulse Resp BP Pulse Ox O2 Del Method 03/28/25 14:45 97.7 F 93 H 16 139/89 94 Room Air 03/28/25 14:30 91 H 12 03/28/25 14:15 89 12 03/28/25 14:00 92 H 14 03/28/25 13:50 92 H 14 03/28/25 13:40 92 H 14 93 Room Air 03/28/25 13:30 90 14 128/98 94 Room Air 03/28/25 13:20 88 12 123/92 94 Room Air 03/28/25 13:10 93 H 16 110/86 95 Room Air 03/28/25 13:00 87 15 130/87 93 Room Air 03/28/25 12:50 89 15 136/100 94 Room Air 03/28/25 12:40 97 H 12 127/92 97 Oxymask 03/28/25 12:33 96.8 F L 93 H 12 123/94 95 Oxymask 03/28/25 06:11 98.4 F 97 H 22 125/94 95 Room Air O2 Flow Rate 03/28/25 14:45 03/28/25 14:30 03/28/25 14:15 03/28/25 14:00 03/28/25 13:50 03/28/25 13:40 03/28/25 13:30 03/28/25 13:20 03/28/25 13:10 03/28/25 13:00 03/28/25 12:50 03/28/25 12:40 4 03/28/25 12:33 4 03/28/25 06:11 PG Care Time/CCT Total # of Minutes Spent Total Time Spent with Patient: Total time spent is greater than 50% in coordination of care (as documented) at patient's floor/unit and/or counseling patient: Coding
--- NOTE | 2025-03-28 15:33 | Communication Note ---
Date of Service: March 28, 2025 Dmitri seen in room 352-2 postoperatively. He is alert and oriented x3. I presented alongside Dr. Anderson and patient adamantly refused to be seen by or t alk to either hospital medicine providers. Reports that he will only speak to his surgeon. Educated patient that he has the right to refused care but Dr. Crenshaw ordered for us to see him and manage his medical conditions and he continued to refuse. Discussed care with nursing staff. Please refer to Dr. Anderson's communication note for further information.
--- NOTE | 2025-03-28 16:09 | Communication Note ---
Date of Service: March 28, 2025 Dmitri was seen at the bedside in conjunction with hospitalist NICO Grimes. Notified by nursing that there was concern for postanesthesia reaction. Patient also with possible penis discomfort and wanted Ac removed. On arrival to the room patient immediately refused to engage or talk to providers repeating over and over "get out ". Did express that there was concern for an anesthesia reaction, and that we are the medical team to make sure he was safe. Patient refused to offer any verbal conversation repeating "get out "and pointing directly at the door. The patient's nurse, Barbara Grimes, and I subsequently left the room. After 5 to 10 minutes I did reenter the room introducing myself as the medical esthetician again concerned about any possible anesthesia reactions and to ask them about any medical problems he might have. Patient continued to repeat "get out "and voided again at the door. I repeated to the patient that he has the right to decline any consults or medical care he does not wish, however I need to know that he understands that anesthesia reactions in some cases be life- threatening or fatal and that he understands this risk. Patient reported "if I have a reaction I will pull a gun out of my bag and just blow my head off ". Patient did have a beige backpack in bed with him. I asked the patient "do you have a gun in your bag?" to which he replied "wouldn't you like to know". Following this, and I promptly left the room and notified security of the situation. Patient's bag was subsequently removed by security. Following this was notified by nursing that patient had requested to speak with myself. I did see him at the bedside; For safety, nurse was outside in the hallway however out of view from the patient.. Patient did express frustration over the situation. I did express to the patient my first concern was for his safety and medical health, and that anytime someone brings up a firearm unfortunately security has to be notified. He subsequently expressed that he did not have any suicidal ideations, but was very frustrated after his family left earlier in the day. He requested that his bag be returned from security, I did let him know that security had his bag and would be returned per their safety protocols but likely would be at time of discharge. He also did indicate that he wanted his Ac removed and that this was what was uncomfortable, however declined exam at time of my assessment. Did sympathize with the patient that the situation was very frustrating to him, and offered that the medical team just wants to make sure that his medical comorbidities and problems are addressed as best able and I would be happy to have another hospitalist consult on him moving forward. He did extend his right hand in a handshake however upon shaking his hand he did attempt to pull me towards him but lost his fixed income director in doing so. Following this I left the room, did discuss with the nurse briefly who was aware of all events within the room. Following engagement with patient I did reach out to the psych liaison to discuss the initial suicidal statement. Reviewed the case w/ psych liaison Rut. He did express SI as a theoretical "if" having an anesthesia reaction, and may have been out of frustration. He subsequently denied suicidal intent. On review with psychiatric liaison it was felt that one-to-one was not required and given his agitation and engagement 1:1 may actually worsen the situation; every 15 minute visual checks were recommended. This was communicated directly to the nurse and if there were any escalating concerns then to notify provider. Primary team notified.
[2025-03-28] MEDS: LACTATED RINGER'S 1,000 ML IV SCH (16:24)
[2025-03-28] MEDS: KETOROLAC 30 MG/ML VIAL IV SCH (16:47)
[2025-03-28] MEDS: ACETAMINOPHEN 1,000 MG/100 ML VIAL IV STA (17:09)
[2025-03-28] MEDS: POTASSIUM CITRATE 10 MEQ TAB PO SCH (21:07)
[2025-03-28] MEDS: DOCUSATE SODIUM/SENNA 50/8.6MG TAB PO SCH (21:26)
[2025-03-28] MEDS: NYSTATIN CR 15 GM TUBE EXT SCH (21:27)
[2025-03-28] MEDS: NYSTATIN POWDER 15GM BTL EXT SCH (21:27)
[2025-03-28] MEDS: FAMOTIDINE 20 MG TAB PO PRN (23:15)
[2025-03-29] MEDS: REMOVE LIDODERM PATCH SCH (01:05)
[2025-03-29] MEDS ORDERED: LR 15ML/HR IV SCH (06:00)
[2025-03-29] MEDS ORDERED: ACETAMINOPHEN 500 MG TAB PO SCH (06:00)
[2025-03-29] MEDS ORDERED: LR 60ML/HR IV SCH (06:00)
[2025-03-29] MEDS: POLYETHYLENE (MIRALAX) 17 GM PACK PO SCH (06:37)
[2025-03-29] MEDS: FINASTERIDE 5 MG TAB PO SCH (07:24)
[2025-03-29] MEDS: ATORVASTATIN 40 MG TAB PO SCH (07:25)
[2025-03-29] MEDS: EZETIMIBE 10 MG TAB PO SCH (07:25)
[2025-03-29] MEDS: CHOLECALCIFEROL 125 MCG (5,000 UNITS) TAB PO SCH (07:26)
[2025-03-29] MEDS: FAMOTIDINE 20 MG TAB PO SCH (07:28)
[2025-03-29 07:36] LABS: Hematocrit (blood only) 38.5 % (42.0-52.0); Hemoglobin 13.0 g/dl (14.0-18.0); Immature Granulocytes # (auto) 0.10 K/uL (0.01-0.20); Immature Granulocytes % (auto) 0.6 %; Mean Corpuscular Hemoglobin 31.1 pg (25.0-34.0); Mean Corpuscular Volume 92.1 fL (80.0-100.0); Platelet Count 231 K/uL (130-400); RDW Standard Deviation 44.4 fL (36.4-46.3); Red Blood Count 4.18 M/uL (4.70-6.10); White Blood Count 16.64 K/ul (4.8-10.8)
[2025-03-29 07:37] VITALS: PULSE 88
[2025-03-29 07:57] LABS: Anion Gap 9.0 (3-11); Blood Urea Nitrogen 12.0 mg/dl (6-23); Calcium 9.1 mg/dl (8.6-10.3); Carbon Dioxide 22.0 mmol/L (21-32); Chloride 107.0 mmol/L (98-107); Creatinine Clr Calc Pharmacy 71.2 ml/min; Glucose 143.0 mg/dl (70-99(Fasting)); Potassium 4.2 mmol/L (3.5-5.1); Sodium 138.0 mmol/L (136-145)
[2025-03-29] MEDS ORDERED: LIDOCAINE 5% 1 PATCH TD PRN (09:00)
[2025-03-29] MEDS ORDERED: LIDOCAINE 5% 1 PATCH TD SCH (09:00)
--- NOTE | 2025-03-29 09:19 | Orthopedic Progress Note ---
Date of Service March 29, 2025 Assessment & Plan (1) Cervical spondylosis: (2) S/P cervical spinal fusion: Subjective s/p ACDF, confusion from last night has resolved, no issues overnight. No radicular pain today. Swallowing fine, no airway issues. Drain minimal output. Review of Systems All systems reviewed & are unremarkable except as noted in HPI & below. Physical Exam drain 10 cc overnight 5/5 strength c5-t1, silt c5-t1 normal gait Results & Data Results & Data Laboratory Results . Diagnostic Findings . PG Care Time/CCT Total # of Minutes Spent Total Time Spent with Patient: Total time spent is greater than 50% in coordination of care (as documented) at patient's floor/unit and/or counseling patient: Coding Level of Care Code 48753 Post Operative Follow-Up Diagnoses Cervical spondylosis M47.812 S/P cervical spinal fusion Z98.1
--- NOTE | 2025-03-29 09:23 | Discharge Summary ---
Date of Service March 29, 2025 Admission HPI (Per Admitting) Patient is a 59-year-old gentleman here for follow-up status post cervical epidural injection. He had a C7-T1 translaminar epidural injection which provided approximately 6 weeks of good relief of symptoms. Fortunately pain radiating into the left upper extremity is starting to return, main area of concentration is the superior aspect of his shoulder. He does report some radiation of pain and numbness into the C6 and C7 dermatomes down to the left hand. He has had the symptoms for quite some time, he has undergone shoulder surgery. He was also evaluated by one of our other spine surgeons and sent for nerve conduction study which did show chronic C6 and C7 radiculopathy. No changes since clinic Admission Exam (Per Admitting) Physical exam: Constitutional: Well developed, appears stated age Psych: patient is coherent and answers questions appropriately, normal affect Eye: Normal gaze, no redness to sclera, pupils round and equal Pulm: Normal respiratory effort, no wheezing Cardiovascular: no significant peripheral edema, 2+ radial pulses Skin shows no rashes, lesions 5/5 muscle strength with testing of deltoids, wrist extensors, triceps, finger flexion, and hand intrinsics Sensation intact to light touch in the C5-T1 dermatomes bilaterally 2+ reflexes at biceps, triceps, and brachioradialis bilaterally Imaging: MRI of the cervical spine available for review and discussed again with the patient today. He does have moderate disc degeneration at C3-4 with disc bulge, severe left foraminal stenosis at C3-4. C5-6 C6-7 both show a moderate degree of disc degeneration with severe left foraminal stenosis at C5-6 and moderate at C6-7 with compression of the exiting nerve roots. Principal Diagnosis Same as "Discharge Diagnosis" noted below under Discharge Instructions. Discharge Exam drain 10 cc overnight 5/5 strength c5-t1, silt c5-t1 normal gait Discharge Data Consultations 03/28/25 14:57 Consult Hospitalist Routine Procedures Performed Operation Date: 03/28/25 07:30 Actual Procedures p C5-C6, C6-C7 Anterior Cervical Discectomy and Fusion, Spinal Cord Monitoring(Not Applicable) - Kamran Crenshaw MD Ordered Studies 03/28/25 07:30 FL cervical 2-3V Routine Hospital Course (1) S/P cervical spinal fusion: (2) Cervical arthritis: (3) Other cervical disc degeneration at C5-C6 level: (4) Other cervical disc degeneration at C6-C7 level: (5) Cervical spondylosis: Plan Admitted post op C5-7 ACDF for airway monitoring. He was confused early in the evening and refused medical consult. He made a statement about a gun in his handbag, security and psychiatry were alerted. Belongings were removed, psych recommended observation. This AM he conversant and apologetic about last night's actions. Pain controlled on his home oxycodone, reports radicular pain improved. No airway issues, minimal output in drain overnight, swallowing, voiding. Xrays show good position of the interbody cages and plate. Will dc home today. PG Care Time/CCT Total # of Minutes Spent Total Time Spent with Patient: Total time spent is greater than 50% in coordination of care (as documented) at patient's floor/unit and/or counseling patient: Discharge Plan Discharge Items Patient Disposition: Home - Self-Care Reason For Visit: Other Cervical Disc Degeneration at C6-C7 Level, F Discharge Diagnosis: Follow home post op instruction sheet. Condition on Discharge: Good Activity: Per Instructions section Lifting: No more than 5 pounds Bathing: May shower/bathe in 3 days Non-emergency contact: Surgeon Call non-emergency contact if: your pain is worsening, your temperature is above 101 and your wound has increased drainage Follow-up/Referrals: Osiel Santos DO [Primary Care Provider] - Diet: Other - See Diet Comment Addtl Attending Provider Instructions: Follow instruction section below. Pending Studies at Discharge: No Stand-Alone Forms: My [facility] AlephD, Smoking Cessation Medications and DC Order Prescriptions: New tizanidine 4 mg tablet 4 mg PO Q8H PRN (Reason: muscle spasticity) Qty: 90 0RF Continued atorvastatin [Lipitor] 40 mg tablet 40 mg PO QAM Qty: 90 3RF ezetimibe [Zetia] 10 mg tablet 10 mg PO QAM Qty: 90 1RF nystatin 100,000 unit/gram cream 1 applic topical BID Qty: 30 0RF oxycodone-acetaminophen 10-325 mg tablet 1 tab PO Q6H PRN (Reason: pain) Qty: 120 0RF Rx Instructions: do not fill until 10/09/22 potassium citrate [Urocit-K 10] 10 mEq (1,080 mg) tablet extended release 10 meq PO BID Rx Instructions: TAKE 2 TABLETS BY MOUTH DAILY esomeprazole magnesium [Nexium] 40 mg capsule,delayed release(DR/EC) 40 mg PO QAM Qty: 90 3RF cholecalciferol (vitamin D3) [Vitamin D3] 125 mcg (5,000 unit) tablet 5,000 unit PO QAM oxycodone 10 mg tablet 10 mg PO Q4H PRN (Reason: pain) Qty: 150 0RF lidocaine 4 % adhesive patch,medicated 1 patch topical DAILY PRN (Reason: Pain) nystatin 100,000 unit/gram powder 1 applic topical BID Qty: 30 1RF finasteride [Proscar] 5 mg Tablet 5 mg PO QAM famotidine [Pepcid] 20 mg tablet 20 mg PO DAILY Discharge Orders: Discharge Order (Routine); Ordered 03/29/25 Ordered By: Kamran Crenshaw Admission Data Admit Date/Time: 03/28/25 12:49 Attending Provider: Kamran Crenshaw Admit Provider: Kamran Crenshaw Primary Care Provider: Osiel Santos Other Providers: Rupesh Anderson
--- NOTE | 2025-03-29 09:28 | XRay Report ---
CERVICAL SPINE 2 VIEWS CLINICAL HISTORY: Postoperative examination. FINDINGS: AP and lateral standing views of the cervical spine are compared to study dated 02/23/2023. The skeletal structures are osteopenic. There is no radiographic evidence of acute fracture or malali gnment. Vertebral body height and alignment are maintained throughout the cervical spine. There has b een discectomy at C5-C6 and C6-C7 with anterior fusion at C5-C7. The orthopedic hardware appears inta ct. The spinolaminar line is maintained. The spinous processes appear intact. Anterior osteophytes ar e seen in the upper cervical region. Productive degenerative change is noted at the atlantodental art iculation. Multilevel facet arthropathy is noted on the AP view. There is moderate disc space narrowi ng at C3-C4. Prevertebral soft tissue edema is nonspecific and likely related to recent surgery. A stone rgical drain is in place. The imaged apical lung parenchyma appears clear. IMPRESSION: 1. No acute bony abnormality is seen involving the cervical spine. 2. Osteopenia with postsurgical and spondylotic change as above. Electronically signed by: Kamran Michael M.D. 03/29/2025 9:26 AM
[2025-03-29 09:34] VITALS: BP 115/73; RESP 16; TEMP 97.7; O2SAT 95
== END 2025-03-29 11:05 | disposition home or self-care (01) ==
LOC: 3W 05:40 → ASU 05:40